=== PATIENT | male | born 2000 | race Caucasian/White ===

== ENCOUNTER 2019-07-01 21:56 | Emergency (ER) | payer OTHER ==
--- OUTSIDE RECORDS SUMMARY | 2019-07-01 22:12 | XMS REPORT | Continuity of Care Document ---
:2000 External Reference #:[id number] Author Name Arnoldo Cole PA Address [address] [place] [address] Problems Description No Information Available Social History Type Date Description Comments Sex Unknown Allergies, Adverse Reactions, Alerts Description No Known Drug Allergies Medications Active Medications SIG Qnty Indications Ordering Provider Date Atomoxetine HCL 1 by mouth every 30caps Oma Gonzalez 06/24/2019 80mg morning MD Davis Capsules Escitalopram Oxalate 1 by mouth every 30tabs Oma Gonzalez 06/24/2019 20mg day MD Davis Tablets Naproxen 1 by mouth twice 30tabs B34.9 Oma Gonzalez 06/24/2019 500mg Tablets a day as needed MD Davis Immunizations Description No Information Available Vital Signs Date Vital Result Comment 06/24/2019 10:02am Body Temperature 95.3 F Weight 186.25 lb Weight Percentile 86th Heart Rate 95 /min BP Systolic 144 mmHg BP Diastolic 80 mmHg Height 74 inches 6'2" Height Percentile 94 % BMI (Body Mass Index) 23.9 kg/m2 Body Mass Index Percentile 63 % Results Test Acquired Date Facility Test Result H/L Range Note Laboratory test 06/24/2019 Done In [facility] 1 Rapid Flu A= NEG finding Test (In B=NEG House) 1 Strep Screen (In-House) NEG Negative Procedures Description No Information Available Medical Devices Description No Information Available Encounters Description No Information Available Assessments Date Code Description Provider 06/24/2019 B34.9 Viral infection, unspecified Arnoldo Cole PA 06/24/2019 J02.9 Acute pharyngitis, unspecified Arnoldo Cole PA 06/24/2019 R51 Headache Arnoldo Cole PA 06/24/2019 R05 Cough Arnoldo Cole PA Plan of Treatment 06/24/2019 - Arnoldo Cole PAB34.9 Viral infection, unspecifiedNew Medication: Naproxen 500 mg - 1 by mouth twice a day as neededComments:will treat with s/s OTC. ?RTC is worsening s/s.J02.9 Acute pharyngitis, [id number] Cough Functional Status Description No Information Available Mental Status Description No Information Available Referrals Description No Information Available
--- NOTE | 2019-07-02 00:15 | ED ---
Laceration/Wound HPI - HPI Summary HPI Summary: Patient complains of chin laceration after fall while playing basketball tonight. Tetanus status up-to-date. Denies any other pain, injury symptoms. No anti-coag. - History of Current Complaint Stated Complaint: CHIN LAC PER PT Time Seen by Provider: 07/02/19 00:13 Hx Obtained From: Patient Mechanism of Injury: Sharp/Blunt Trauma Onset Severity: Mild Current Severity: Mild Pain Intensity: 2 Pain Scale Used: 0-10 Numeric Associated Signs & Symptoms: Negative - Allergy/Home Medications Allergies/Adverse Reactions: Allergies Allergy/AdvReac Type Severity Reaction Status Date / Time No Known Allergies Allergy Verified 07/01/19 22:01 Home Medications: Home Medications Atomoxetine HCl [Strattera] 80 mg PO DAILY 07/02/19 [History Confirmed 07/02/19] Escitalopram Oxalate [Lexapro] 20 mg PO DAILY 07/02/19 [History Confirmed ] PMH/Surg Hx/FS Hx/Imm Hx Endocrine/Hematology History: Denies: Hx Anticoagulant Therapy Cardiovascular History: Denies: Hx Pacemaker/ICD History: Denies: Hx Dialysis Sensory History: Denies: Hx Eye Prosthesis Opthamlomology History: Denies: Hx Legally Blind EENT History: Denies: Hx Deafness Infectious Disease History: No Infectious Disease History: Reports: Traveled Outside the [place] in Last 30 Days - [place] - Family History Known Family History: Positive: Non-Contributory - Social History Alcohol Use: Occasionally Hx Substance Use: No Hx Tobacco Use: No Review of Systems Constitutional: Negative Eyes: Negative ENT: Negative Cardiovascular: Negative Respiratory: Negative Gastrointestinal: Negative Genitourinary: Negative Musculoskeletal: Negative Skin: Other Neurological: Negative Psychological: Normal All Other Systems Reviewed And Are Negative: Yes Physical Exam Triage Information Reviewed: Yes Vital Signs On Initial Exam: Initial Vitals Temp Pulse Resp BP Pulse Ox 98.5 F 84 18 152/90 98 07/01/19 22:00 07/01/19 22:00 07/01/19 22:00 07/01/19 22:00 07/01/19 22:00 Vital Signs Reviewed: Yes Appearance: Positive: Well-Appearing Skin: Positive: Warm Head/Face: Positive: Normal Head/Face Inspection Eyes: Positive: Normal Dental: Negative: Dental Fracture @, Bleeding Neck: Positive: Supple Respiratory/Lung Sounds: Positive: Clear to Auscultation Cardiovascular: Positive: Normal Abdomen Description: Positive: Nontender Musculoskeletal: Positive: Normal Neurological: Positive: Normal Psychiatric: Positive: Normal AVPU Assessment: Alert - Pattie Coma Scale Best Eye Response: 4 - Spontaneous Best Motor Response: 6 - Obeys Commands Best Verbal Response: 5 - Oriented Coma Scale Total: 15 Procedures - Sedation Patient Received Moderate/Deep Sedation with Procedure: No - Laceration/Wound Repair 1 Location: face Description: Linear Length, Depth and Shape: 1cm X .5cm Betadine Prep?: No Irrigated w/ Saline (ccs): 300 Laceration/Wound Explored: clean Closure: Skin Adhesive, SteriStrips Debridement: minimal Number of Sutures: 0 Layer Closure?: No Sterile Dressing Applied?: No Diagnostics - Vital Signs Vital Signs Temp Pulse Resp BP Pulse Ox 07/01/19 22:00 98.5 F 84 18 152/90 98 - Laboratory Lab Statement: Any lab studies that have been ordered have been reviewed, and results considered in the medical decision making process. Laceration Repair Course/Dx - Course Course Of Treatment: Patient complains of chin laceration after fall while playing basketball tonight. Tetanus status up-to-date. Denies any other pain, injury symptoms. No anti-coag. Vital signs are normal limits. Wound cleaned and sutured. - Clinical Impression Provider Diagnoses: Laceration Discharge ED - Sign-Out/Discharge Documenting (check all that apply): Patient Departure - Discharge Plan Condition: Stable Disposition: HOME Patient Education Materials: Skin Adhesive Care (ED), Facial Laceration (ED) Referrals: No Primary Care Phys,NOPCP [Primary Care Provider] - Additional Instructions: Gently wash around strips. Leave on until they fall off on their own. Do not submerge wounds underwater for 5 days. Return to the ED for any new or worsening symptoms. - Billing Disposition and Condition Condition: STABLE Disposition: Home
[2019-07-02 00:55] VITALS: BP 127/78
== END 2019-07-02 00:54 | disposition home or self-care (01) ==
LOC: ED 21:56
DX: S01.81XA Laceration without foreign body of other part of head, initial encounter (principal); W19.XXXA Unspecified fall, initial encounter; Y93.67 Activity, basketball; Y92.9 Unspecified place or not applicable
CPT/HCPCS: 99282